=== PATIENT | female | born 1960 | race Caucasian/White ===

== ENCOUNTER → 2019-01-03 | Outpatient (CLI) | payer BC, OTHER ==
--- NOTE | 2019-01-07 10:03 | SLEEPCENT ---
DATE OF STUDY: 01/03/2019 ORDERED BY: Israel Recinos Nocturnal polysomnography was performed for evaluation of sleep physiology in this patient with a history of excessive somnolence and nonrestorative sleep who has comorbidities of obstructive lung disease, asthma and acid reflux disease. 8 hours and 21 minutes of data were reviewed. There were 439.5 minutes of sleep identified. Sleep latency was normal at 7 minutes. Rapid eye movement (REM) latency was prolonged at 141 minutes. Sleep architecture was fair with some fragmentation. Three REM cycles were noted. Overall sleep efficiency was 88.9%. The patient's electrocardiogram showed a sinus rhythm with an average heart rate of 70 beats per minute. Electroencephalogram (EEG) showed normal waveforms for awake and sleep stages. There were 309 respiratory events identified of 10 seconds in duration or greater for an apnea-hypopnea index of 42.2. The events were primarily obstructive, not exclusive to sleep stage nor body posture. Arousals from respiratory events occurred 14.6 times per hour and oxygen desaturations were seen into the low 70s. Snoring was noted and remaining measures of sleep physiology were normal. IMPRESSION: Severe obstructive sleep apnea syndrome (G47.33). Apnea-hypopnea index 42.2. RECOMMENDATION: The patient should be encouraged to return to the sleep disorder center for pressure therapy. In the interim, alcohol and sedative avoidance should be practiced and caution exercised during the operation of motor vehicles.
== END ==
LOC: M SLEEP 19:33
PROVIDERS: ATTEND Physician Assistant
DX: R40.0 Somnolence (principal)

== ENCOUNTER → 2019-02-11 | Outpatient (CLI) | payer BC, OTHER ==
--- NOTE | 2019-02-15 16:58 | SLEEPCENT ---
DATE OF PROCEDURE: 02/11/2019 ORDERED BY: Israel Recinos PA-C Nocturnal polysomnography was performed for the titration of pressure therapy in this patient with obstructive sleep apnea syndrome. Apnea-hypopnea index 42.2. For testing, the patient was fit with a [employer] Brevida Nasal Pillows device of medium size, 4 cm of water pressure applied to the circuit and the lights were extinguished. 8 hours and 14 minutes of data were reviewed. There were 419 minutes of sleep identified. Sleep latency was short at 6 minutes. REM latency was short at 64 minutes. Sleep architecture was good with five REM cycles. Overall sleep efficiency was 86.4%. The patient's electrocardiogram showed a sinus rhythm with an average heart rate of 66 beats per minute. EEG showed reasonably normal waveforms for awake and sleep stages. Respiratory events were fully palliated with C-PAP at a pressure of +7 with some minimal limb activity and remaining measures of sleep physiology were normal. IMPRESSION Obstructive sleep apnea syndrome (G47.33) RECOMMENDATIONS Nightly use of pressure therapy 7 cm of water.
== END ==
LOC: M SLEEP 19:23
PROVIDERS: ATTEND Physician Assistant
DX: G47.33 Obstructive sleep apnea (adult) (pediatric) (principal)

== ENCOUNTER → 2019-10-10 | Outpatient (CLI) | payer BC, OTHER ==
--- NOTE | 2019-10-10 12:50 | REP ---
REASON FOR EXAM: Tobacco abuse. COMPARISON: Standard CT chest of 10/09/2015. As per the protocol, only lung window images were sent to the read station for interpretation. No abnormal nodules have developed since the last exam. The lung johnson are essentially unchanged. Grossly, the mediastinum and pulmonary migel are unchanged. Grossly, the imaged upper abdomen and imaged osseous structures are unchanged. There are no pleural or pericardial effusions. IMPRESSION: Lung RADS category 2 exam. Electronically Signed by Sree Giraldo DO 10/10/2019 01:09 P
== END ==
LOC: M RAD 09:15
PROVIDERS: ATTEND Physician Assistant
DX: Z87.891 Personal history of nicotine dependence (principal); Z12.2 Encounter for screening for malignant neoplasm of respiratory organs

== ENCOUNTER → 2021-04-04 | Outpatient (CLI) | payer BC, OTHER ==
--- NOTE | 2021-04-04 14:18 | REP ---
INDICATION: BONE INFARCT. COMPARISON: There are no prior MRIs for comparison. TECHNIQUE: Sagittal spin-echo proton density, T2 STIR and T2 FLASH. Coronal spin-echo proton density and fat suppressed proton density. Axial fat suppressed proton density. FINDINGS: The anterior and posterior horns of the medial meniscus are within normal limits. The anterior and posterior horns of the lateral meniscus are within normal limits. The anterior and posterior cruciate ligaments are intact. The quadriceps and patellar tendons are intact. There is T2 hyper signal seen in the distal quadriceps tendon at the patellar attachment. This is seen with focal tendinous thickening. The medial and lateral collateral ligaments are intact. The medial and lateral patellar retinacula are intact. There is advanced thinning and irregularity of the patellar articular cartilage and the cartilaginous surface of the trochlear groove. There is mild lateral patellar subluxation. There is moderate medial and lateral compartmental cartilaginous thinning and irregularity. There is mild tricompartmental marginal osteophytosis. There is no joint effusion or Prieto's cyst. In the distal femoral diaphyseal medullary cavity there is a well demarcated mixed signal bony lesion which measures approximately 5.3 x 2.1 x 1.2 cm. There is no abnormal soft tissue mass and there is no abnormal concomitant periosteal thickening or signal. IMPRESSION: 1. 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 A benign enchondroma can have a similar appearance. The plain film finding can be considered consistent with either of those benign diagnoses. If the patient is experiencing focal pain then a follow-up exam should be considered. 2. 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 3. Chronic changes seen involving the distal quadriceps tendon consistent with tendinosis/tendinitis. If the patient has focal pain then a gadolinium-enhanced examination should be considered. 4. Other findings as described above. <Electronically signed by Sree Giraldo > 04/04/21 [id number]
== END ==
LOC: M RAD 07:14
PROVIDERS: ATTEND Physician Assistant
DX: M87.9 Osteonecrosis, unspecified (principal); M94.269 Chondromalacia, unspecified knee

== ENCOUNTER 2021-11-02 16:59 | Inpatient (IN) | payer BC, OTHER ==
[~2021-11-02] VITALS: Ht 165.1 cm; Wt 130.0 kg
[2021-11-02] MEDS ORDERED: MORPHINE 4 MG/ML 1ML VIAL/SYRINGE IV ONE ×2 (17:10→18:05)
[2021-11-02] MEDS ORDERED: ONDANSETRON 4MG 2ML VIAL As Ordered ONE (17:22)
[2021-11-02] MEDS ORDERED: ONDANSETRON 4MG 2ML VIAL IV ONE (17:30)
[2021-11-02] MEDS ORDERED: DOCU100C16 PO (20:15)
[2021-11-02] MEDS ORDERED: METF10004 PO (20:15)
[2021-11-02] MEDS ORDERED: INCR1INH PO (20:15)
[2021-11-02] MEDS ORDERED: OZEM2INJ INJ (20:15)
[2021-11-02] MEDS ORDERED: CETI-24 PO (20:15)
[2021-11-02] MEDS ORDERED: VITA500T9 PO (20:15)
[2021-11-02] MEDS ORDERED: ADV500INH INH (20:15)
[2021-11-02] MEDS ORDERED: MONT10TA97 PO (20:15)
[2021-11-02] MEDS ORDERED: ATOR1TAB19 PO (20:15)
[2021-11-02] MEDS ORDERED: FURO40TA2 PO (20:15)
[2021-11-02] MEDS ORDERED: FLUTISP (20:15)
[2021-11-02] MEDS ORDERED: BUPR150T12 PO (20:15)
[2021-11-02] MEDS ORDERED: SYNT25TA PO (20:15)
[2021-11-02] MEDS ORDERED: OMEP40CA5 PO (20:15)
[2021-11-02 20:24] LABS: BASO % 0.4 % (0.0-1.0); EOS # 0.1 10^3/uL (0.0-0.5); EOS % 1.3 % (0.0-3.0); HEMATOCRIT 35.5 % (36.0-47.0); LYMPH # 1.6 10^3/uL (1.5-5.0); LYMPH % 14.5 % (24.0-44.0); MEAN CORPUSCULAR HEMOGLOBIN 30.5 pg (27.0-33.0); MEAN CORPUSCULAR HGB CONC 33.8 g/dl (32.0-36.5); MEAN CORPUSCULAR VOLUME 90.1 fl (80.0-96.0); MONO # 0.9 10^3/uL (0.0-0.8); MONO % 7.6 % (2.0-8.0); NEUTROPHILS # 8.5 10^3/uL (1.5-8.5); NEUTROPHILS % 75.8 % (36.0-66.0); PLATELET COUNT, AUTOMATED 229 10^3/uL (150-450); RED BLOOD COUNT 3.94 10^6/uL (4.00-5.40); WHITE BLOOD COUNT 11.2 10^3/uL (4.0-10.0)
[2021-11-02 20:34] LABS: INR 1.05; PROTHROMBIN TIME 14.1 SECONDS (12.7-14.5)
[2021-11-02 20:35] LABS: PARTIAL THROMBOPLASTIN TIME 27.5 SECONDS (25.9-37.0)
[2021-11-02] MEDS ORDERED: PROAAER10 INH (20:38)
[2021-11-02] MEDS ORDERED: THERTAB52 PO (20:38)
[2021-11-02] MEDS ORDERED: VITA100093 PO (20:38)
[2021-11-02] MEDS ORDERED: IPRA0.00 INH (20:38)
[2021-11-02] MEDS ORDERED: HOME MED LIST COMPLETE! XX SCH (20:40)
[2021-11-02] MEDS ORDERED: PERCOCET 5MG/325MG TAB PO PRN (20:40)
[2021-11-02 20:43] LABS: CALCIUM LEVEL 9.1 MG/DL (8.8-10.2); CREATININE FOR GFR 1.08 MG/DL (0.55-1.30); GLOMERULAR FILTRATION RATE 54.5 (>45); MAGNESIUM LEVEL 1.5 MG/DL (1.8-2.4); POTASSIUM SERUM 4.1 MEQ/L (3.5-5.1)
[2021-11-02 21:04] LABS: RSV AMPLIFICATION NEGATIVE (NEGATIVE)
[2021-11-02] MEDS ORDERED: HYDROMORPHONE HCL 0.5 MG/ 0.5 ML SYRINGE (J1170 PER 1) IV PRN (21:05)
[2021-11-02] MEDS ORDERED: DOCUSATE SODIUM 100MG CAPSULE PO PRN (21:50)
[2021-11-02] MEDS ORDERED: OMEPRAZOLE 20MG CAP PO ONE (22:00)
[2021-11-02] MEDS ORDERED: DEXTROSE 50% 50 ML SYRINGE IV PRN (22:00)
[2021-11-02] MEDS ORDERED: GLUCOSE 4GM CHEW TABLET PO PRN (22:00)
[2021-11-02] MEDS ORDERED: GLUCAGON INJ 1MG VIAL SC PRN (22:00)
[2021-11-03] VITALS: BP 127/71
[2021-11-03] MEDS: NS 1,000 ML IV SCH ×2 (00:42→08:07)
[2021-11-03] MEDS: HEPARIN SOD (PORCINE) 5000UNITS/ML 1ML VIAL/SYRINGE SC SCH ×2 (01:27→13:13)
[2021-11-03] MEDS: LEVOTHYROXINE 25MCG TABLET (0.025MG) PO SCH (05:31)
[2021-11-03] MEDS: NORCO, ANEXSIA 5/325MG TABLET (HYDROcodone/ACETAMINOPHEN) PO PRN ×2 (05:32→14:54)
[2021-11-03] MEDS: INSULIN LISPRO (NovoLOG) PER UNIT SC SCH ×3 (05:49→12:00)
[2021-11-03 06:00] VITALS: BP 129/71
[2021-11-03] MEDS: ADVAIR HFA 230/21MCG INHALER INH SCH ×2 (07:20→20:00)
[2021-11-03 07:37] LABS: BLOOD UREA NITROGEN 15 MG/DL (7-18); CARBON DIOXIDE LEVEL 27 MEQ/L (21-32); CHLORIDE LEVEL 108 MEQ/L (98-107); CREATININE FOR GFR 0.84 MG/DL (0.55-1.30); GLOMERULAR FILTRATION RATE > 60.0 (>45); GLUCOSE, FASTING 115 MG/DL (70-100); MAGNESIUM LEVEL 1.8 MG/DL (1.8-2.4); POTASSIUM SERUM 4.1 MEQ/L (3.5-5.1); SODIUM LEVEL 143 MEQ/L (136-145)
[2021-11-03] MEDS: buPROPion **XL** TABLET 150MG (WELLBUTRIN XL) PO SCH (08:07)
[2021-11-03] MEDS: ATORVASTATIN 10 MG TAB PO SCH (08:07)
[2021-11-03] MEDS ORDERED: ASCORBIC ACID 500 MG TAB PO SCH (09:00)
[2021-11-03] MEDS ORDERED: propofoL 200 MG/20 ML VIAL As Ordered ONE (11:20)
[2021-11-03] MEDS ORDERED: MIDAZOLAM INJ 2MG/2ML VIAL (J2250 PER 1MG) As Ordered ONE (11:21)
[2021-11-03] MEDS ORDERED: fentaNYL 100 MCG/2 ML INJECTION As Ordered ONE (11:21)
[2021-11-03] MEDS ORDERED: ONDANSETRON 4MG 2ML VIAL As Ordered ONE (11:22)
[2021-11-03] MEDS ORDERED: dexameTHASONE 4 MG/ML 1ML VIAL (J1100 PER 1MG) As Ordered ONE (11:22)
[2021-11-03] MEDS ORDERED: ROCURONIUM BROMIDE 50 MG/5 ML VIAL As Ordered ONE ×2 (11:24→17:52)
[2021-11-03] MEDS: CETIRIZINE (ZyrTEC) 10 MG TAB PO SCH (12:49)
[2021-11-03] MEDS: TIOTROPIUM INHALER/CAPSULE (SPIRIVA) INH SCH (12:59)
[2021-11-03 14:00] VITALS: BP 141/87
[2021-11-03] MEDS ORDERED: ceFAZolin 2 GM/D5W 50 ML IV BAG (J0690 PER 500MG) As Ordered ONE (16:18)
[2021-11-03] MEDS ORDERED: TRANEXAMIC ACID 100 MG/ML 10ML VIAL As Ordered ONE (16:18)
[2021-11-03] MEDS ORDERED: BUPIVACAINE/EPIN 0.5% 30 ML VIAL As Ordered ONE (16:18)
[2021-11-03] MEDS ORDERED: ceFAZolin 1GM VIAL (J0690 PER 500MG) As Ordered ONE (16:18)
[2021-11-03] MEDS ORDERED: EPINEPHrine 1MG/ML INJ 30ML MD-VIAL As Ordered ONE (16:19)
[2021-11-03] MEDS ORDERED: HYDROmorphone HCL 2MG/ML 1ML VIAL As Ordered ONE (18:14)
[2021-11-03] MEDS ORDERED: ACETAMINOPHEN 1000MG 100ML IV BTL (OFIRMEV) (J0131 PER 10MG) As Ordered ONE (19:02)
[2021-11-03] MEDS ORDERED: KETOROLAC 60MG 2ML VIAL As Ordered ONE (19:02)
[2021-11-03] MEDS ORDERED: SUGAMMADEX SODIUM 500 MG/5 ML VIAL (BRIDION) As Ordered ONE (19:03)
[2021-11-03] MEDS ORDERED: fentaNYL 100 MCG/2 ML INJECTION IV PRN (20:15)
[2021-11-03] MEDS ORDERED: PERCOCET 5MG/325MG TAB PO PRN (20:15)
[2021-11-03] MEDS ORDERED: HYDROMORPHONE HCL 0.5 MG/ 0.5 ML SYRINGE (J1170 PER 1) IV PRN (20:15)
[2021-11-03] MEDS ORDERED: LR 1,000 ML IV SCH ×2 (20:15→22:25)
[2021-11-03] MEDS ORDERED: ONDANSETRON 4MG 2ML VIAL IV PRN ×2 (20:15→22:35)
[2021-11-03] MEDS ORDERED: METOCLOPRAMIDE INJ 10MG/2ML VIAL (J2765 PER 1) As Ordered ONE (20:26)
[2021-11-03] MEDS ORDERED: ALBUTEROL SULFATE 2.5 MG/0.5 ML INH NEB SOLN INH ONE (21:00)
[2021-11-03] MEDS ORDERED: **hydrALAZINE HCL** 25 MG TAB PO ONE (21:25)
[2021-11-03] MEDS ORDERED: hydrALAZINE 20MG/ML 1ML VIAL (J0360 PER 20MG) As Ordered ONE (21:29)
[2021-11-03 22:00] VITALS: BP 146/71; O2SAT 95
[2021-11-03] MEDS ORDERED: hydrALAZINE 20MG/ML 1ML VIAL (J0360 PER 20MG) IV ONE (22:00)
[2021-11-03 22:30] VITALS: BP 141/70; O2SAT 95
[2021-11-03] MEDS ORDERED: SENNA 8.6 MG TAB (SENOKOT) PO PRN (22:35)
[2021-11-03] MEDS: MONTELUKAST 10 MG TAB PO SCH (23:00)
[2021-11-03] MEDS: ACETAMINOPHEN TAB 650MG DOSE (2X325MG) PO SCH (23:01)
[2021-11-03] MEDS: NAPROXEN 250 MG TAB PO SCH (23:01)
[2021-11-03 23:30] VITALS: BP 138/70
[2021-11-04] VITALS (11 sets, daily range): BP systolic 126–140; BP diastolic 71–80; O2SAT 90–97
[2021-11-04] MEDS: ceFAZolin SOD 2 GM in IV 1 EA IV SCH ×2 (00:10→09:26)
[2021-11-04] MEDS: HEPARIN SOD (PORCINE) 5000UNITS/ML 1ML VIAL/SYRINGE SC SCH ×4 (00:47→21:01)
[2021-11-04] MEDS: LEVOTHYROXINE 25MCG TABLET (0.025MG) PO SCH (05:10)
[2021-11-04] MEDS: ACETAMINOPHEN TAB 650MG DOSE (2X325MG) PO SCH ×4 (05:11→23:37)
[2021-11-04 05:33] LABS: HEMATOCRIT 35.7 % (36.0-47.0); HEMOGLOBIN 11.7 g/dl (12.0-15.5); MEAN CORPUSCULAR HEMOGLOBIN 29.9 pg (27.0-33.0); MEAN CORPUSCULAR HGB CONC 32.8 g/dl (32.0-36.5); MEAN CORPUSCULAR VOLUME 91.3 fl (80.0-96.0); PLATELET COUNT, AUTOMATED 214 10^3/uL (150-450); RED BLOOD COUNT 3.91 10^6/uL (4.00-5.40); WHITE BLOOD COUNT 8.9 10^3/uL (4.0-10.0)
[2021-11-04 05:57] LABS: BLOOD UREA NITROGEN 12 MG/DL (7-18); CALCIUM LEVEL 8.6 MG/DL (8.8-10.2); CARBON DIOXIDE LEVEL 27 MEQ/L (21-32); CHLORIDE LEVEL 108 MEQ/L (98-107); CREATININE FOR GFR 0.79 MG/DL (0.55-1.30); GLOMERULAR FILTRATION RATE > 60.0 (>45); GLUCOSE, FASTING 117 MG/DL (70-100); POTASSIUM SERUM 4.5 MEQ/L (3.5-5.1); SODIUM LEVEL 142 MEQ/L (136-145)
[2021-11-04] MEDS: INSULIN LISPRO (NovoLOG) PER UNIT SC SCH ×4 (07:37→20:51)
[2021-11-04] MEDS: ATORVASTATIN 10 MG TAB PO SCH (07:38)
[2021-11-04] MEDS: DOCUSATE SODIUM 100MG CAPSULE PO SCH ×2 (07:38→21:01)
[2021-11-04] MEDS: FERROUS SULFATE 325MG TAB PO SCH (07:38)
[2021-11-04] MEDS: CETIRIZINE (ZyrTEC) 10 MG TAB PO SCH (07:38)
[2021-11-04] MEDS: buPROPion **XL** TABLET 150MG (WELLBUTRIN XL) PO SCH (07:38)
[2021-11-04] MEDS: ASCORBIC ACID 500 MG TAB PO SCH (07:39)
[2021-11-04] MEDS: ASPIRIN 81MG ENTERIC TABLET PO SCH ×2 (07:39→21:02)
[2021-11-04] MEDS: NAPROXEN 250 MG TAB PO SCH ×2 (07:39→21:03)
[2021-11-04] MEDS: ADVAIR HFA 230/21MCG INHALER INH SCH ×2 (08:14→20:12)
[2021-11-04] MEDS: TIOTROPIUM INHALER/CAPSULE (SPIRIVA) INH SCH (08:14)
[2021-11-04] MEDS: OMEPRAZOLE 20MG CAP PO SCH (09:41)
[2021-11-04] MEDS: LEVEMIR (INSULIN DETEMIR) 1 UNITS/0.01ML SC SCH (09:42)
[2021-11-04] MEDS: SENNA 8.6 MG TAB (SENOKOT) PO SCH ×2 (09:42→21:03)
[2021-11-04] MEDS: MOM 30ML SUSPENSION UDC PO SCH (09:42)
[2021-11-04] MEDS: oxyCODONE 5MG TAB PO PRN ×3 (11:19→21:00)
[2021-11-04] MEDS: FUROSEMIDE 40 MG TAB PO SCH (16:47)
[2021-11-04] MEDS: MONTELUKAST 10 MG TAB PO SCH (21:02)
[2021-11-04] MEDS ORDERED: KETOROLAC 30 MG/ML 1ML VIAL IV ONE (23:05)
[2021-11-04] MEDS ORDERED: oxyCODONE 5MG TAB PO ONE (23:05)
[2021-11-05 05:27] VITALS: BP 140/75
[2021-11-05] MEDS: HEPARIN SOD (PORCINE) 5000UNITS/ML 1ML VIAL/SYRINGE SC SCH ×3 (05:31→21:10)
[2021-11-05] MEDS: ACETAMINOPHEN TAB 650MG DOSE (2X325MG) PO SCH ×3 (05:31→19:14)
[2021-11-05] MEDS: LEVOTHYROXINE 25MCG TABLET (0.025MG) PO SCH (05:32)
[2021-11-05] MEDS: oxyCODONE 5MG TAB PO PRN ×3 (05:33→19:16)
[2021-11-05 05:50] LABS: HEMATOCRIT 34.5 % (36.0-47.0); HEMOGLOBIN 11.2 g/dl (12.0-15.5); MEAN CORPUSCULAR HGB CONC 32.5 g/dl (32.0-36.5); MEAN CORPUSCULAR VOLUME 92.5 fl (80.0-96.0); PLATELET COUNT, AUTOMATED 195 10^3/uL (150-450); RED BLOOD COUNT 3.73 10^6/uL (4.00-5.40); WHITE BLOOD COUNT 8.3 10^3/uL (4.0-10.0)
[2021-11-05 06:14] LABS: CALCIUM LEVEL 8.7 MG/DL (8.8-10.2); GLOMERULAR FILTRATION RATE 59.6 (>45); POTASSIUM SERUM 3.9 MEQ/L (3.5-5.1)
[2021-11-05] MEDS: LEVEMIR (INSULIN DETEMIR) 1 UNITS/0.01ML SC SCH (07:23)
[2021-11-05] MEDS: INSULIN LISPRO (NovoLOG) PER UNIT SC SCH ×4 (07:23→20:48)
[2021-11-05] MEDS: ASPIRIN 81MG ENTERIC TABLET PO SCH ×2 (07:24→21:09)
[2021-11-05] MEDS: FERROUS SULFATE 325MG TAB PO SCH (07:24)
[2021-11-05] MEDS: MOM 30ML SUSPENSION UDC PO SCH (07:24)
[2021-11-05] MEDS: FUROSEMIDE 40 MG TAB PO SCH ×2 (07:24→11:59)
[2021-11-05] MEDS: ATORVASTATIN 10 MG TAB PO SCH (07:24)
[2021-11-05] MEDS: ASCORBIC ACID 500 MG TAB PO SCH (07:25)
[2021-11-05] MEDS: OMEPRAZOLE 20MG CAP PO SCH (07:25)
[2021-11-05] MEDS: buPROPion **XL** TABLET 150MG (WELLBUTRIN XL) PO SCH (07:25)
[2021-11-05] MEDS: CETIRIZINE (ZyrTEC) 10 MG TAB PO SCH (07:25)
[2021-11-05] MEDS: DOCUSATE SODIUM 100MG CAPSULE PO SCH ×2 (07:25→21:09)
[2021-11-05] MEDS: NAPROXEN 250 MG TAB PO SCH ×2 (07:26→21:10)
[2021-11-05] MEDS: SENNA 8.6 MG TAB (SENOKOT) PO SCH ×2 (07:26→21:09)
[2021-11-05] MEDS: TIOTROPIUM INHALER/CAPSULE (SPIRIVA) INH SCH (07:58)
[2021-11-05] MEDS: ADVAIR HFA 230/21MCG INHALER INH SCH ×2 (07:58→20:05)
[2021-11-05] MEDS ORDERED: BACLOFEN 5MG PER 1/2 TABLET PO PRN (08:25)
[2021-11-05] MEDS: traMADol 50 MG TAB PO PRN (08:49)
[2021-11-05 14:00] VITALS: BP 144/81
[2021-11-05 19:40] VITALS: BP 139/72
[2021-11-05] MEDS: MONTELUKAST 10 MG TAB PO SCH (21:10)
[2021-11-06 01:16] VITALS: O2SAT 93
[2021-11-06 05:43] VITALS: BP 143/73
[2021-11-06] MEDS: ACETAMINOPHEN TAB 650MG DOSE (2X325MG) PO SCH ×4 (06:14→17:22)
[2021-11-06] MEDS: LEVOTHYROXINE 25MCG TABLET (0.025MG) PO SCH (06:14)
[2021-11-06] MEDS: HEPARIN SOD (PORCINE) 5000UNITS/ML 1ML VIAL/SYRINGE SC SCH ×3 (06:14→21:17)
[2021-11-06 06:55] LABS: HEMATOCRIT 34.7 % (36.0-47.0); HEMOGLOBIN 11.6 g/dl (12.0-15.5); MEAN CORPUSCULAR HGB CONC 33.4 g/dl (32.0-36.5); MEAN CORPUSCULAR VOLUME 92.8 fl (80.0-96.0); PLATELET COUNT, AUTOMATED 182 10^3/uL (150-450); RED BLOOD COUNT 3.74 10^6/uL (4.00-5.40); WHITE BLOOD COUNT 6.4 10^3/uL (4.0-10.0)
[2021-11-06 07:16] LABS: BLOOD UREA NITROGEN 13 MG/DL (7-18); CALCIUM LEVEL 9.1 MG/DL (8.8-10.2); CARBON DIOXIDE LEVEL 35 MEQ/L (21-32); CHLORIDE LEVEL 102 MEQ/L (98-107); CREATININE FOR GFR 0.79 MG/DL (0.55-1.30); GLOMERULAR FILTRATION RATE > 60.0 (>45); GLUCOSE, FASTING 134 MG/DL (70-100); POTASSIUM SERUM 4.6 MEQ/L (3.5-5.1); SODIUM LEVEL 138 MEQ/L (136-145)
[2021-11-06] MEDS: ADVAIR HFA 230/21MCG INHALER INH SCH ×2 (08:24→19:05)
[2021-11-06] MEDS: TIOTROPIUM INHALER/CAPSULE (SPIRIVA) INH SCH (08:24)
[2021-11-06] MEDS: oxyCODONE 5MG TAB PO PRN ×2 (08:45→15:07)
[2021-11-06] MEDS: INSULIN LISPRO (NovoLOG) PER UNIT SC SCH ×4 (09:04→21:00)
[2021-11-06] MEDS: LEVEMIR (INSULIN DETEMIR) 1 UNITS/0.01ML SC SCH (09:04)
[2021-11-06] MEDS: buPROPion **XL** TABLET 150MG (WELLBUTRIN XL) PO SCH (09:05)
[2021-11-06] MEDS: FERROUS SULFATE 325MG TAB PO SCH (09:05)
[2021-11-06] MEDS: ASPIRIN 81MG ENTERIC TABLET PO SCH ×2 (09:05→21:17)
[2021-11-06] MEDS: ATORVASTATIN 10 MG TAB PO SCH (09:05)
[2021-11-06] MEDS: DOCUSATE SODIUM 100MG CAPSULE PO SCH ×2 (09:05→21:18)
[2021-11-06] MEDS: SENNA 8.6 MG TAB (SENOKOT) PO SCH ×2 (09:05→21:17)
[2021-11-06] MEDS: OMEPRAZOLE 20MG CAP PO SCH (09:05)
[2021-11-06] MEDS: MOM 30ML SUSPENSION UDC PO SCH (09:05)
[2021-11-06] MEDS: CETIRIZINE (ZyrTEC) 10 MG TAB PO SCH (09:05)
[2021-11-06] MEDS: NAPROXEN 250 MG TAB PO SCH ×2 (09:06→21:17)
[2021-11-06] MEDS: FUROSEMIDE 40 MG TAB PO SCH ×2 (09:06→12:05)
[2021-11-06] MEDS: ASCORBIC ACID 500 MG TAB PO SCH (09:06)
[2021-11-06 10:11] VITALS: O2SAT 94
[2021-11-06 14:00] VITALS: BP 148/76
[2021-11-06] MEDS: ALBUTEROL 90 MCG/ACT 8GM HFA INHALER INH PRN (19:05)
[2021-11-06 19:46] VITALS: BP_SYST 146; BP_SYST 148; BP_DIAS 78; BP_DIAS 88
[2021-11-06] MEDS: MONTELUKAST 10 MG TAB PO SCH (21:17)
[2021-11-06 22:27] VITALS: O2SAT 93
[2021-11-07] MEDS: ACETAMINOPHEN TAB 650MG DOSE (2X325MG) PO SCH ×5 (00:03→23:59)
[2021-11-07] MEDS: HEPARIN SOD (PORCINE) 5000UNITS/ML 1ML VIAL/SYRINGE SC SCH ×3 (05:44→20:59)
[2021-11-07] MEDS: LEVOTHYROXINE 25MCG TABLET (0.025MG) PO SCH (05:44)
[2021-11-07 06:00] VITALS: BP 140/79
[2021-11-07 06:42] LABS: HEMOGLOBIN 11.8 g/dl (12.0-15.5); MEAN CORPUSCULAR HEMOGLOBIN 30.6 pg (27.0-33.0); MEAN CORPUSCULAR HGB CONC 32.8 g/dl (32.0-36.5); MEAN CORPUSCULAR VOLUME 93.5 fl (80.0-96.0); PLATELET COUNT, AUTOMATED 216 10^3/uL (150-450); RED BLOOD COUNT 3.85 10^6/uL (4.00-5.40); WHITE BLOOD COUNT 7.4 10^3/uL (4.0-10.0)
[2021-11-07] MEDS: ADVAIR HFA 230/21MCG INHALER INH SCH ×2 (08:05→19:42)
[2021-11-07] MEDS: TIOTROPIUM INHALER/CAPSULE (SPIRIVA) INH SCH (08:05)
[2021-11-07] MEDS: MOM 30ML SUSPENSION UDC PO SCH (08:11)
[2021-11-07] MEDS: LEVEMIR (INSULIN DETEMIR) 1 UNITS/0.01ML SC SCH (08:11)
[2021-11-07] MEDS: SENNA 8.6 MG TAB (SENOKOT) PO SCH ×2 (08:12→20:59)
[2021-11-07] MEDS: FERROUS SULFATE 325MG TAB PO SCH (08:12)
[2021-11-07] MEDS: CETIRIZINE (ZyrTEC) 10 MG TAB PO SCH (08:12)
[2021-11-07] MEDS: ASPIRIN 81MG ENTERIC TABLET PO SCH ×2 (08:12→20:59)
[2021-11-07] MEDS: INSULIN LISPRO (NovoLOG) PER UNIT SC SCH ×4 (08:12→21:00)
[2021-11-07] MEDS: OMEPRAZOLE 20MG CAP PO SCH (08:12)
[2021-11-07] MEDS: FUROSEMIDE 40 MG TAB PO SCH ×2 (08:12→12:29)
[2021-11-07] MEDS: NAPROXEN 250 MG TAB PO SCH ×2 (08:13→21:00)
[2021-11-07] MEDS: ATORVASTATIN 10 MG TAB PO SCH (08:13)
[2021-11-07] MEDS: buPROPion **XL** TABLET 150MG (WELLBUTRIN XL) PO SCH (08:13)
[2021-11-07] MEDS: ASCORBIC ACID 500 MG TAB PO SCH (08:13)
[2021-11-07] MEDS: DOCUSATE SODIUM 100MG CAPSULE PO SCH ×2 (08:14→20:59)
[2021-11-07] MEDS: traMADol 50 MG TAB PO PRN (08:19)
[2021-11-07 09:00] VITALS: O2SAT 95
[2021-11-07] MEDS: ALBUTEROL 90 MCG/ACT 8GM HFA INHALER INH PRN (12:13)
[2021-11-07] MEDS ORDERED: IPRATROPIUM 0.5MG/ALBUTEROL 2.5MG INH SOL UD 3ML (DUONEB) NEB ONE (13:00)
[2021-11-07 14:00] VITALS: BP 135/77
[2021-11-07] MEDS: IPRATROPIUM 0.5MG/ALBUTEROL 2.5MG INH SOL UD 3ML (DUONEB) NEB PRN ×2 (15:09→19:41)
[2021-11-07] MEDS ORDERED: IPRATROPIUM 0.5MG/ALBUTEROL 2.5MG INH SOL UD 3ML (DUONEB) NEB SCH (16:00)
[2021-11-07 20:55] VITALS: BP 127/79
[2021-11-07 21:00] VITALS: O2SAT 93
[2021-11-07] MEDS: MONTELUKAST 10 MG TAB PO SCH (21:00)
[2021-11-08] MEDS: HEPARIN SOD (PORCINE) 5000UNITS/ML 1ML VIAL/SYRINGE SC SCH ×3 (05:44→21:10)
[2021-11-08] MEDS: LEVOTHYROXINE 25MCG TABLET (0.025MG) PO SCH (05:44)
[2021-11-08] MEDS: ACETAMINOPHEN TAB 650MG DOSE (2X325MG) PO SCH ×3 (05:44→17:41)
[2021-11-08 06:11] VITALS: BP 129/87
[2021-11-08] MEDS: TIOTROPIUM INHALER/CAPSULE (SPIRIVA) INH SCH (07:24)
[2021-11-08] MEDS: ADVAIR HFA 230/21MCG INHALER INH SCH ×2 (07:24→20:04)
[2021-11-08] MEDS: IPRATROPIUM 0.5MG/ALBUTEROL 2.5MG INH SOL UD 3ML (DUONEB) NEB PRN ×2 (07:24→20:04)
[2021-11-08] MEDS: LEVEMIR (INSULIN DETEMIR) 1 UNITS/0.01ML SC SCH (08:17)
[2021-11-08] MEDS: INSULIN LISPRO (NovoLOG) PER UNIT SC SCH ×4 (08:17→21:00)
[2021-11-08] MEDS: OMEPRAZOLE 20MG CAP PO SCH (08:18)
[2021-11-08] MEDS: DOCUSATE SODIUM 100MG CAPSULE PO SCH ×2 (08:18→21:11)
[2021-11-08] MEDS: MOM 30ML SUSPENSION UDC PO SCH (08:18)
[2021-11-08] MEDS: buPROPion **XL** TABLET 150MG (WELLBUTRIN XL) PO SCH (08:19)
[2021-11-08] MEDS: CETIRIZINE (ZyrTEC) 10 MG TAB PO SCH (08:20)
[2021-11-08] MEDS: SENNA 8.6 MG TAB (SENOKOT) PO SCH ×2 (08:20→21:10)
[2021-11-08] MEDS: ATORVASTATIN 10 MG TAB PO SCH (08:21)
[2021-11-08] MEDS: ASCORBIC ACID 500 MG TAB PO SCH (08:21)
[2021-11-08] MEDS: FERROUS SULFATE 325MG TAB PO SCH (08:21)
[2021-11-08] MEDS: ASPIRIN 81MG ENTERIC TABLET PO SCH ×2 (08:23→21:11)
[2021-11-08] MEDS: NAPROXEN 250 MG TAB PO SCH ×2 (08:23→21:11)
[2021-11-08] MEDS: FUROSEMIDE 40 MG TAB PO SCH ×2 (08:23→12:19)
[2021-11-08 14:49] VITALS: BP 116/76
[2021-11-08 20:32] VITALS: BP 116/75
[2021-11-08] MEDS: MONTELUKAST 10 MG TAB PO SCH (21:10)
[2021-11-09] MEDS: ACETAMINOPHEN TAB 650MG DOSE (2X325MG) PO SCH ×4 (00:15→18:02)
[2021-11-09] MEDS: HEPARIN SOD (PORCINE) 5000UNITS/ML 1ML VIAL/SYRINGE SC SCH ×3 (05:19→21:00)
[2021-11-09] MEDS: LEVOTHYROXINE 25MCG TABLET (0.025MG) PO SCH (05:19)
[2021-11-09 05:53] VITALS: BP 100/73
[2021-11-09] MEDS: TIOTROPIUM INHALER/CAPSULE (SPIRIVA) INH SCH (07:17)
[2021-11-09] MEDS: ADVAIR HFA 230/21MCG INHALER INH SCH ×2 (07:17→19:21)
[2021-11-09] MEDS: IPRATROPIUM 0.5MG/ALBUTEROL 2.5MG INH SOL UD 3ML (DUONEB) NEB PRN ×2 (07:19→19:24)
[2021-11-09] MEDS: MOM 30ML SUSPENSION UDC PO SCH (08:18)
[2021-11-09] MEDS: INSULIN LISPRO (NovoLOG) PER UNIT SC SCH ×4 (08:18→20:35)
[2021-11-09] MEDS: LEVEMIR (INSULIN DETEMIR) 1 UNITS/0.01ML SC SCH (08:18)
[2021-11-09] MEDS: OMEPRAZOLE 20MG CAP PO SCH (08:19)
[2021-11-09] MEDS: DOCUSATE SODIUM 100MG CAPSULE PO SCH ×2 (08:19→21:00)
[2021-11-09] MEDS: buPROPion **XL** TABLET 150MG (WELLBUTRIN XL) PO SCH (08:20)
[2021-11-09] MEDS: FERROUS SULFATE 325MG TAB PO SCH (08:20)
[2021-11-09] MEDS: CETIRIZINE (ZyrTEC) 10 MG TAB PO SCH (08:21)
[2021-11-09] MEDS: ASCORBIC ACID 500 MG TAB PO SCH (08:21)
[2021-11-09] MEDS: ATORVASTATIN 10 MG TAB PO SCH (08:21)
[2021-11-09] MEDS: FUROSEMIDE 40 MG TAB PO SCH ×2 (08:21→12:25)
[2021-11-09] MEDS: ASPIRIN 81MG ENTERIC TABLET PO SCH ×2 (08:21→20:59)
[2021-11-09] MEDS: NAPROXEN 250 MG TAB PO SCH ×2 (08:22→21:00)
[2021-11-09] MEDS: SENNA 8.6 MG TAB (SENOKOT) PO SCH ×3 (08:24→21:12)
[2021-11-09 13:46] VITALS: BP 143/75
[2021-11-09] MEDS: MONTELUKAST 10 MG TAB PO SCH (21:01)
[2021-11-09 21:40] VITALS: BP 138/74
[2021-11-10] MEDS: ACETAMINOPHEN TAB 650MG DOSE (2X325MG) PO SCH ×4 (00:01→17:05)
[2021-11-10] MEDS: LEVOTHYROXINE 25MCG TABLET (0.025MG) PO SCH (05:48)
[2021-11-10] MEDS: HEPARIN SOD (PORCINE) 5000UNITS/ML 1ML VIAL/SYRINGE SC SCH ×3 (05:49→21:14)
[2021-11-10 06:00] VITALS: BP 143/80
[2021-11-10] MEDS: TIOTROPIUM INHALER/CAPSULE (SPIRIVA) INH SCH (07:14)
[2021-11-10] MEDS: ADVAIR HFA 230/21MCG INHALER INH SCH ×2 (07:14→20:03)
[2021-11-10] MEDS: IPRATROPIUM 0.5MG/ALBUTEROL 2.5MG INH SOL UD 3ML (DUONEB) NEB PRN (07:14)
[2021-11-10] MEDS: INSULIN LISPRO (NovoLOG) PER UNIT SC SCH ×4 (08:16→21:00)
[2021-11-10] MEDS: MOM 30ML SUSPENSION UDC PO SCH (08:16)
[2021-11-10] MEDS: DOCUSATE SODIUM 100MG CAPSULE PO SCH ×2 (08:17→21:00)
[2021-11-10] MEDS: LEVEMIR (INSULIN DETEMIR) 1 UNITS/0.01ML SC SCH (08:17)
[2021-11-10] MEDS: ASPIRIN 81MG ENTERIC TABLET PO SCH ×2 (08:17→21:13)
[2021-11-10] MEDS: OMEPRAZOLE 20MG CAP PO SCH (08:18)
[2021-11-10] MEDS: FUROSEMIDE 40 MG TAB PO SCH ×2 (08:18→12:16)
[2021-11-10] MEDS: NAPROXEN 250 MG TAB PO SCH ×2 (08:19→21:14)
[2021-11-10] MEDS: buPROPion **XL** TABLET 150MG (WELLBUTRIN XL) PO SCH (08:20)
[2021-11-10] MEDS: CETIRIZINE (ZyrTEC) 10 MG TAB PO SCH (08:20)
[2021-11-10] MEDS: ATORVASTATIN 10 MG TAB PO SCH (08:20)
[2021-11-10] MEDS: SENNA 8.6 MG TAB (SENOKOT) PO SCH ×2 (08:21→21:00)
[2021-11-10] MEDS: ASCORBIC ACID 500 MG TAB PO SCH (08:22)
[2021-11-10] MEDS: FERROUS SULFATE 325MG TAB PO SCH (08:22)
[2021-11-10 14:00] VITALS: BP 135/72
[2021-11-10] MEDS ORDERED: NYSTATIN 100,000 UNITS/GM TOPICAL PWD 15 GM TOP SCH (21:00)
[2021-11-10] MEDS: MONTELUKAST 10 MG TAB PO SCH (21:14)
[2021-11-10 21:44] VITALS: BP 130/73
[2021-11-11] MEDS: LEVOTHYROXINE 25MCG TABLET (0.025MG) PO SCH (05:03)
[2021-11-11] MEDS: ACETAMINOPHEN TAB 650MG DOSE (2X325MG) PO SCH ×4 (05:04→17:21)
[2021-11-11] MEDS: HEPARIN SOD (PORCINE) 5000UNITS/ML 1ML VIAL/SYRINGE SC SCH ×3 (05:04→21:17)
[2021-11-11 06:00] VITALS: BP 113/62
[2021-11-11] MEDS: TIOTROPIUM INHALER/CAPSULE (SPIRIVA) INH SCH (07:11)
[2021-11-11] MEDS: ADVAIR HFA 230/21MCG INHALER INH SCH ×2 (07:11→20:00)
[2021-11-11] MEDS: SENNA 8.6 MG TAB (SENOKOT) PO SCH ×2 (08:17→21:11)
[2021-11-11] MEDS: LEVEMIR (INSULIN DETEMIR) 1 UNITS/0.01ML SC SCH (08:17)
[2021-11-11] MEDS: MOM 30ML SUSPENSION UDC PO SCH (08:17)
[2021-11-11] MEDS: INSULIN LISPRO (NovoLOG) PER UNIT SC SCH ×4 (08:17→21:00)
[2021-11-11] MEDS: CETIRIZINE (ZyrTEC) 10 MG TAB PO SCH (08:17)
[2021-11-11] MEDS: OMEPRAZOLE 20MG CAP PO SCH (08:18)
[2021-11-11] MEDS: buPROPion **XL** TABLET 150MG (WELLBUTRIN XL) PO SCH (08:18)
[2021-11-11] MEDS: ASCORBIC ACID 500 MG TAB PO SCH (08:18)
[2021-11-11] MEDS: FUROSEMIDE 40 MG TAB PO SCH ×2 (08:19→12:56)
[2021-11-11] MEDS: NAPROXEN 250 MG TAB PO SCH ×2 (08:19→21:12)
[2021-11-11] MEDS: ATORVASTATIN 10 MG TAB PO SCH (08:20)
[2021-11-11] MEDS: ASPIRIN 81MG ENTERIC TABLET PO SCH ×2 (08:20→21:12)
[2021-11-11] MEDS: DOCUSATE SODIUM 100MG CAPSULE PO SCH ×2 (08:20→21:11)
[2021-11-11] MEDS: FERROUS SULFATE 325MG TAB PO SCH (08:20)
[2021-11-11 14:00] VITALS: BP 132/69
[2021-11-11 20:30] VITALS: BP 129/70
[2021-11-11] MEDS: MONTELUKAST 10 MG TAB PO SCH (21:11)
[2021-11-12] MEDS: HEPARIN SOD (PORCINE) 5000UNITS/ML 1ML VIAL/SYRINGE SC SCH ×3 (05:27→21:07)
[2021-11-12] MEDS: ACETAMINOPHEN TAB 650MG DOSE (2X325MG) PO SCH ×4 (05:27→17:32)
[2021-11-12] MEDS: LEVOTHYROXINE 25MCG TABLET (0.025MG) PO SCH (05:27)
[2021-11-12 06:00] VITALS: BP 153/79
[2021-11-12] MEDS: ADVAIR HFA 230/21MCG INHALER INH SCH ×2 (07:21→20:12)
[2021-11-12] MEDS: TIOTROPIUM INHALER/CAPSULE (SPIRIVA) INH SCH (07:21)
[2021-11-12] MEDS: LEVEMIR (INSULIN DETEMIR) 1 UNITS/0.01ML SC SCH (08:01)
[2021-11-12] MEDS: NAPROXEN 250 MG TAB PO SCH ×2 (08:02→20:07)
[2021-11-12] MEDS: ASCORBIC ACID 500 MG TAB PO SCH (08:02)
[2021-11-12] MEDS: DOCUSATE SODIUM 100MG CAPSULE PO SCH ×2 (08:02→20:06)
[2021-11-12] MEDS: INSULIN LISPRO (NovoLOG) PER UNIT SC SCH ×4 (08:02→21:00)
[2021-11-12] MEDS: ATORVASTATIN 10 MG TAB PO SCH (08:03)
[2021-11-12] MEDS: buPROPion **XL** TABLET 150MG (WELLBUTRIN XL) PO SCH (08:03)
[2021-11-12] MEDS: OMEPRAZOLE 20MG CAP PO SCH (08:03)
[2021-11-12] MEDS: MOM 30ML SUSPENSION UDC PO SCH (08:03)
[2021-11-12] MEDS: ASPIRIN 81MG ENTERIC TABLET PO SCH ×2 (08:03→20:06)
[2021-11-12] MEDS: FERROUS SULFATE 325MG TAB PO SCH (08:03)
[2021-11-12] MEDS: SENNA 8.6 MG TAB (SENOKOT) PO SCH ×2 (08:03→20:07)
[2021-11-12] MEDS: FUROSEMIDE 40 MG TAB PO SCH ×2 (08:03→12:01)
[2021-11-12] MEDS: CETIRIZINE (ZyrTEC) 10 MG TAB PO SCH (08:03)
[2021-11-12] MEDS: IPRATROPIUM 0.5MG/ALBUTEROL 2.5MG INH SOL UD 3ML (DUONEB) NEB PRN ×2 (11:14→15:39)
[2021-11-12] MEDS: traMADol 50 MG TAB PO PRN (15:04)
[2021-11-12] MEDS: MONTELUKAST 10 MG TAB PO SCH (20:07)
[2021-11-12 22:00] VITALS: BP 136/77
[2021-11-13] MEDS: HEPARIN SOD (PORCINE) 5000UNITS/ML 1ML VIAL/SYRINGE SC SCH (05:08)
[2021-11-13] MEDS: ACETAMINOPHEN TAB 650MG DOSE (2X325MG) PO SCH ×2 (05:09)
[2021-11-13] MEDS: traMADol 50 MG TAB PO PRN (05:09)
[2021-11-13] MEDS: LEVOTHYROXINE 25MCG TABLET (0.025MG) PO SCH (05:10)
[2021-11-13 06:00] VITALS: BP 121/67
[2021-11-13] MEDS: FUROSEMIDE 40 MG TAB PO SCH (07:34)
[2021-11-13] MEDS: ATORVASTATIN 10 MG TAB PO SCH (07:34)
[2021-11-13] MEDS: ASCORBIC ACID 500 MG TAB PO SCH (07:34)
[2021-11-13] MEDS: buPROPion **XL** TABLET 150MG (WELLBUTRIN XL) PO SCH (07:34)
[2021-11-13] MEDS: OMEPRAZOLE 20MG CAP PO SCH (07:35)
[2021-11-13] MEDS: DOCUSATE SODIUM 100MG CAPSULE PO SCH (07:35)
[2021-11-13] MEDS: NAPROXEN 250 MG TAB PO SCH (07:35)
[2021-11-13] MEDS: SENNA 8.6 MG TAB (SENOKOT) PO SCH (07:35)
[2021-11-13] MEDS: ASPIRIN 81MG ENTERIC TABLET PO SCH (07:35)
[2021-11-13] MEDS: LEVEMIR (INSULIN DETEMIR) 1 UNITS/0.01ML SC SCH (07:36)
[2021-11-13] MEDS: MOM 30ML SUSPENSION UDC PO SCH (07:36)
[2021-11-13] MEDS: FERROUS SULFATE 325MG TAB PO SCH (07:36)
[2021-11-13] MEDS: INSULIN LISPRO (NovoLOG) PER UNIT SC SCH (07:37)
[2021-11-13] MEDS: ADVAIR HFA 230/21MCG INHALER INH SCH (07:38)
[2021-11-13] MEDS: TIOTROPIUM INHALER/CAPSULE (SPIRIVA) INH SCH (07:39)
[2021-11-13] MEDS: CETIRIZINE (ZyrTEC) 10 MG TAB PO SCH (08:09)
[2021-11-13] MEDS ORDERED: ASPI-551 PO (09:30)
[2021-11-13] MEDS ORDERED: BACL10TA2 PO (09:30)
[2021-11-13] MEDS ORDERED: FERR1TAB8 PO (09:30)
[2021-11-13] MEDS ORDERED: TRAM50TA2 PO (09:30)
[2021-11-13] MEDS ORDERED: OXYC-517 PO (09:30)
== END 2021-11-13 10:35 | DRG 317 ==
LOC: M ED 16:59 → EDBD 16:59 → M ED INP 20:07 → ENRESERV 21:15 → M MS5PR 23:59
PROVIDERS: ADMIT Internal Medicine; ATTEND Internal Medicine
PROC: 0S9D4ZZ Drainage of Left Knee Joint, Percutaneous Endoscopic Approach (ICD-10-PCS; 2021-11-03)
PROC: 0QSHXZZ Reposition Left Tibia, External Approach (ICD-10-PCS; 2021-11-03)
PROC: 0LQQ0ZZ Repair Right Knee Tendon, Open Approach (ICD-10-PCS; principal; 2021-11-03 11:30)
DX: S82.842A Displaced bimalleolar fracture of left lower leg, initial encounter for closed fracture (principal); Z68.42 Body mass index [BMI] 45.0-49.9, adult; E66.01 Morbid (severe) obesity due to excess calories; S76.111A Strain of right quadriceps muscle, fascia and tendon, initial encounter; F32.A Depression, unspecified; J44.9 Chronic obstructive pulmonary disease, unspecified; E03.9 Hypothyroidism, unspecified; E11.9 Type 2 diabetes mellitus without complications; Z87.891 Personal history of nicotine dependence; Z79.890 Hormone replacement therapy; Z79.899 Other long term (current) drug therapy; Z79.84 Long term (current) use of oral hypoglycemic drugs; G47.33 Obstructive sleep apnea (adult) (pediatric); M94.261 Chondromalacia, right knee; W10.8XXA Fall (on) (from) other stairs and steps, initial encounter; Y92.018 Other place in single-family (private) house as the place of occurrence of the external cause; Y93.89 Activity, other specified; Y99.8 Other external cause status; K21.9 Gastro-esophageal reflux disease without esophagitis